=== PATIENT | female | born 1975 | race Hispanic/Latino ===

== ENCOUNTER 2017-07-30 15:17 | Emergency (ER) | payer BC ==
[2017-07-30] MEDS ORDERED: NORCO 5/325 PO ONE (16:57)
--- NOTE | 2017-07-30 17:31 | Emergency Department Report ---
<IZA RODRIGUEZ - Last Filed: 07/30/17 19:00> ED Lower Extremity HPI - General Chief Complaint: Extremity Injury, Lower Stated Complaint: RIGHT LEG PAIN Time Seen by Provider: 07/30/17 16:36 Source: patient Mode of arrival: Ambulatory Limitations: Physical Limitation - History of Present Illness Initial Comments: 41-year-old female past medical history obesity, hypertension presents with complaint of right great toe pain and right knee pain status post mechanical fall. As per patient she buckled her knee while exiting a plane today. Patient states was walking on it although was sore and then is entering a vehicle right knee buckled again and she fell forward onto her right knee. Scraped her right elbow. Denies any head trauma. States that walking on her right foot and right knee is painful. Patient is awake alert and oriented 3 in accompanied by mother at bedside. Patient did say she felt a popping sensation and right knee and clicking while she walks. MD Complaint: knee injury, other (right great toe) -: This afternoon Injury: Knee: Right, Toes: Right Place: street/outdoors Severity: moderate Severity scale (0 -10): 7 Worsens With: weight bearing, movement, palpation Context: fall, walking Associated Symptoms: snap/pop sensation, swelling, able to partially bear weight Treatments Prior to Arrival: cold therapy - Related Data Previous Rx's Medication Instructions Recorded Last Taken Type Ibuprofen [Motrin 800 MG tab] 800 mg PO Q8HR PRN #30 tablet 07/30/17 Unknown Rx Allergies Allergy/AdvReac Type Severity Reaction Status Date / Time codeine AdvReac Unknown Verified 07/30/17 15:34 ED Review of Systems ROS: Stated complaint: RIGHT LEG PAIN Other details as noted in HPI Constitutional: denies: chills, fever Eyes: denies: eye pain, eye discharge, vision change ENT: denies: ear pain, throat pain Respiratory: denies: cough, shortness of breath, wheezing Cardiovascular: denies: chest pain, palpitations Endocrine: no symptoms reported Gastrointestinal: denies: abdominal pain, nausea, diarrhea Genitourinary: denies: urgency, dysuria, discharge Musculoskeletal: denies: back pain, joint swelling, arthralgia Skin: denies: rash, lesions Neurological: denies: headache, weakness, paresthesias Psychiatric: denies: anxiety, depression Hematological/Lymphatic: denies: easy bleeding, easy bruising ED Past Medical Hx - Past Medical History Previous Medical History?: Yes Hx Hypertension: Yes - Surgical History Past Surgical History?: Yes Hx Cholecystectomy: Yes Additional Surgical History: 2 c sections, hysterectomy - Social History Smoking Status: Former Smoker Substance Use Type: None - Medications Home Medications: Home Medications Medication Instructions Recorded Confirmed Last Taken Type Ibuprofen [Motrin 800 MG tab] 800 mg PO Q8HR PRN #30 tablet 07/30/17 Unknown Rx ED Physical Exam - General Limitations: Physical Limitation General appearance: alert, in no apparent distress - Head Head exam: Present: atraumatic, normocephalic - Eye Eye exam: Present: normal appearance, PERRL, EOMI - ENT ENT exam: Present: mucous membranes moist - Neck Neck exam: Present: normal inspection - Respiratory Respiratory exam: Present: normal lung sounds bilaterally. Absent: respiratory distress - Cardiovascular Cardiovascular Exam: Present: regular rate, normal rhythm. Absent: systolic murmur, diastolic murmur, rubs, gallop - GI/Abdominal GI/Abdominal exam: Present: soft, normal bowel sounds - Extremities Exam Extremities exam: Present: normal inspection - Expanded Lower Extremity Exam Right Upper Leg exam: Present: normal inspection, full ROM Knee exam: Present: full ROM, full knee extension Lower Leg exam: Present: normal inspection, full ROM Ankle exam: Present: normal inspection, full ROM Foot/Toe exam: Present: tenderness, swelling, ecchymosis (right great toe swelling) Neuro vascular tendon exam: Present: no vascular compromise 1 - ecchymosis here - Back Exam Back exam: Present: normal inspection - Neurological Exam Neurological exam: Present: alert, oriented X3, CN II-XII intact - Expanded Neurological Exam Expanded Patient oriented to: Present: person, place, time Cranial nerves: EOM's Intact: Normal, Facial Sensation: Normal Cerebellar function: Finger to Nose: Normal, Heel to Serrano: Normal, Romberg: Normal Sensory exam: Upper Extremity Light Touch: Normal, Lower Extremity Light Touch: Normal Motor strength exam: RUE: 5, LUE: 5, RLE: 5, LLE: 5 - Psychiatric Psychiatric exam: Present: normal affect, normal mood - Skin Skin exam: Present: warm, dry, intact, normal color. Absent: rash ED Course Vital Signs 07/30/17 07/30/17 15:22 17:19 Temperature 97.5 F L Pulse Rate 94 H Respiratory 16 18 Rate Blood Pressure 170/99 O2 Sat by Pulse 100 Oximetry ED Lower Extremity MDM - Medical Decision Making A/P: Right knee pain, right knee sprain, possible meniscus or ligament injury right knee, right great toe fracture 1-RICE therapy, crutches, Motrin when necessary 2-patient states she lives in [place] will follow-up with primary care doctor and orthopedics there 3-patient signed out to DIPTI Heck to follow-up x-rays 4- Critical care attestation.: If time is entered above; I have spent that time in minutes in the direct care of this critically ill patient, excluding procedure time. ED Disposition Clinical Impression: Knee effusion, right Toes fractured Qualifiers: Encounter type: initial encounter Toe: great toe Fracture type: closed Phalanx : distal Fracture alignment: nondisplaced Laterality: right Qualified Code(s): S92.424A - Nondisplaced fracture of distal phalanx of right great toe, initial encounter for closed fracture Disposition: TO HOME OR SELFCARE Condition: Stable Instructions: Knee Effusion (ED) Additional Instructions: Please take pain medication as prescribed. Follow up with orthopedics for further evaluation and treatment. Please elevate foot and apply ice. Prescriptions: Ibuprofen [Motrin 800 MG tab] 800 mg PO Q8HR PRN #30 tablet PRN Reason: pain Referrals: JOSE MORENO MD [Primary Care Provider] - 3-5 Days [facility] [Provider Group] - 3-5 Days ANEESH BLOOD MD [Staff Physician] - 3-5 Days MINESH VALENZUELA MD [Staff Physician] - 3-5 Days IVETTE ARIAS MD [Staff Physician] - 3-5 Days Forms: Work/School Release Form(ED) <SHAKA HECK - Last Filed: 07/30/17 19:37> ED Lower Extremity MDM - Radiology Data Radiology results: report reviewed, image reviewed FINAL REPORT EXAM: XR KNEE 3V RT HISTORY: right knee pain s/p fall TECHNIQUE: Three views of the right knee: AP, oblique and cross-table lateral projections. PRIORS: None. FINDINGS: There is no acute fracture or dislocation. Small volume joint effusion. Osseous mineralization normal. No significant osteophyte formation or focal erosions. IMPRESSION: No acute osseous abnormality or significant degenerative change identified. Small volume suprapatellar effusion. FINDINGS: There is acute traumatic fracture the distal aspect proximal phalanx of the 1st toe. Fracture extends through the articular surface. No evidence for joint space widening or irregularity. Remaining bony structures seen are unremarkable. No erosive bony changes are observed. IMPRESSION: Acute intra-articular fracture proximal phalanx of the 1st toe Transcribed By: JUMA Dictated By: JADEN FAN MD Electronically Authenticated By: JADEN FAN MD Signed Date/Time: 07/30/17 190 ED Disposition Is pt being admited?: No Does the pt Need Aspirin: No
--- NOTE | 2017-07-30 19:09 | XRay Report ---
FINAL REPORT EXAM: XR FOOT 3+V RT HISTORY: right foot pain s/p fall, right great toe pain TECHNIQUE: 3 views right foot PRIORS: None. FINDINGS: There is acute traumatic fracture the distal aspect proximal phalanx of the 1st toe. Fracture extends through the articular surface. No evidence for joint space widening or irregularity. Remaining bony structures seen are unremarkable. No erosive bony changes are observed. IMPRESSION: Acute intra-articular fracture proximal phalanx of the 1st toe
--- NOTE | 2017-07-30 19:13 | XRay Report ---
FINAL REPORT EXAM: XR KNEE 3V RT HISTORY: right knee pain s/p fall TECHNIQUE: Three views of the right knee: AP, oblique and cross-table lateral projections. PRIORS: None. FINDINGS: There is no acute fracture or dislocation. Small volume joint effusion. Osseous mineralization normal. No significant osteophyte formation or focal erosions. IMPRESSION: No acute osseous abnormality or significant degenerative change identified. Small volume suprapatellar effusion.
[2017-07-30 20:39] VITALS: BP 167/94
== END 2017-07-30 20:40 | disposition home or self-care (01) ==
LOC: ED 15:17
DX: S92.411A Displaced fracture of proximal phalanx of right great toe, initial encounter for closed fracture (principal); M25.461 Effusion, right knee; I10 Essential (primary) hypertension; Z87.891 Personal history of nicotine dependence; Z88.6 Allergy status to analgesic agent; W18.30XA Fall on same level, unspecified, initial encounter; Y93.89 Activity, other specified; Y92.89 Other specified places as the place of occurrence of the external cause; Y99.8 Other external cause status
CPT/HCPCS: 99284